=== PATIENT | male | born 1985 | race American Indian/Alaskan Native ===

== ENCOUNTER 2017-05-27 10:32 | Emergency (ER) | payer SELFPAY ==
--- NOTE | 2017-05-27 11:22 | XRay Report ---
CHEST 2 VIEWS INDICATION: Shortness of breath. COMPARISON: None similar at this institution. FINDINGS: PA and lateral chest radiographs demonstrate normal cardiomediastinal silhouette. Clear lungs. Intact bones. CONCLUSION: No acute disease in the chest. Thank you for the opportunity to participate in this patient's care.
[2017-05-27] MEDS ORDERED: ZOFRAN IV ONE (16:49)
[2017-05-27] MEDS ORDERED: NACL 0.9% 1000 ML 1,000 ML IV ONE (16:49)
[2017-05-27] MEDS ORDERED: TORADOL IV ONE (16:49)
--- NOTE | 2017-05-27 16:52 | Emergency Department Report ---
ED General Adult HPI - General Chief complaint: Upper Respiratory Infection Stated complaint: FLU SX Time Seen by Provider: 05/27/17 16:45 Source: patient Mode of arrival: Ambulatory Limitations: No Limitations - History of Present Illness Initial comments: Patient is 32 years old male, HIV patient. Patient presented to the ER complaining of cough congestion runny nose and flulike symptoms for the last 5 days patient is complaining of productive cough with greenish sputum. He also stated that his been nauseated and not been eating or drinking well. Patient denied any vomiting that he stated that his been having watery diarrhea. No chest pain or shortness of breath. - Related Data Allergies Allergy/AdvReac Type Severity Reaction Status Date / Time Penicillins Allergy Anaphylaxis Verified 05/27/17 10:56 Sulfa (Sulfonamide Allergy Anaphylaxis Verified 05/27/17 10:56 Antibiotics) ED Review of Systems ROS: Stated complaint: FLU SX Other details as noted in HPI Comment: All other systems reviewed and negative Constitutional: denies: chills, fever Respiratory: cough. denies: orthopnea, shortness of breath, SOB with exertion, SOB at rest, stridor, wheezing Cardiovascular: denies: chest pain, palpitations, dyspnea on exertion Gastrointestinal: nausea, diarrhea. denies: abdominal pain, vomiting, constipation, hematemesis, hematochezia Neurological: denies: headache, weakness, numbness, paresthesias ED Past Medical Hx - Past Medical History Hx HIV: Yes - Surgical History Past Surgical History?: No - Social History Smoking Status: Current Every Day Smoker Substance Use Type: Marijuana ED Physical Exam - General Limitations: No Limitations General appearance: alert, in no apparent distress - Head Head exam: Present: atraumatic, normocephalic, normal inspection - Eye Eye exam: Present: normal appearance - ENT ENT exam: Present: normal exam, normal orophraynx, mucous membranes dry - Neck Neck exam: Present: normal inspection, full ROM. Absent: tenderness, meningismus, lymphadenopathy - Respiratory Respiratory exam: Present: normal lung sounds bilaterally. Absent: respiratory distress, wheezes, rales, rhonchi, chest wall tenderness, accessory muscle use, decreased breath sounds, prolonged expiratory - Cardiovascular Cardiovascular Exam: Present: regular rate, normal rhythm, normal heart sounds - GI/Abdominal GI/Abdominal exam: Present: soft, normal bowel sounds. Absent: distended, tenderness, guarding, rebound, rigid, organomegaly, mass, bruit, pulsatile mass , hernia - Extremities Exam Extremities exam: Present: normal inspection, full ROM, normal capillary refill - Back Exam Back exam: Present: normal inspection, full ROM. Absent: tenderness, CVA tenderness (R), CVA tenderness (L) - Neurological Exam Neurological exam: Present: alert, oriented X3, CN II-XII intact, normal gait - Psychiatric Psychiatric exam: Present: normal affect. Absent: depressed, agitated - Skin Skin exam: Present: warm, dry, intact ED Course Vital Signs 05/27/17 05/27/17 10:50 14:56 Temperature 98.7 F 98.3 F Pulse Rate 83 84 Respiratory 18 22 Rate Blood Pressure 102/67 Blood Pressure 107/65 [Left] O2 Sat by Pulse 100 97 Oximetry ED Medical Decision Making - Lab Data Result diagrams: 05/27/17 16:54 05/27/17 16:54 - Radiology Data Radiology results: report reviewed Referring Physician: REJI MCDANIEL Patient Name: GREG LAZO Date of : 1985 Sex: Male Report Date: 2017-05-27 Report Status: Finalized Findings [facility] [address] [place] [address] XRay Report Signed Patient: GREG LAZO MR#: [id number] : 1985 Acct:[id number] Age/Sex: 32 / M ADM Date: 05/27/17 Loc: ED Attending Dr: Ordering Physician: REJI MCDANIEL MD Date of Service: 05/27/17 Procedure(s): XR chest routine 2V Accession Number(s): [id number] cc: ED MD VIOLETA Fluoro Time In Minutes: CHEST 2 VIEWS INDICATION: Shortness of breath. COMPARISON: None similar at this institution. FINDINGS: PA and lateral chest radiographs demonstrate normal cardiomediastinal silhouette. Clear lungs. Intact bones. CONCLUSION: No acute disease in the chest. Thank you for the opportunity to participate in this patient's care. Transcribed By: RS Dictated By: CHESTER WARD MD Electronically Authenticated By: CHESTER WARD MD Signed Date/Time: 05/27/171116 DD/ 15 TD/TT: 05/27/17 1117 - Medical Decision Making Patient stated that he is feeling much better. No nausea no vomiting. This is most likely acute bronchitis patient will be given ciprofloxacin, Zofran and tramadol for his dental pain. I advised patient to follow-up with his dentist in the next 2-3 days. Critical care attestation.: If time is entered above; I have spent that time in minutes in the direct care of this critically ill patient, excluding procedure time. ED Disposition Clinical Impression: Acute bronchitis, Dehydration, HIV (human immunodeficiency virus infection), Dental caries Disposition: - TO HOME OR SELFCARE Is pt being admited?: No Condition: Stable Instructions: Acute Bronchitis (ED) Referrals: ANH BARRETT MD [Primary Care Provider] - 3-5 Days Forms: Work/School Release Form(ED)
[2017-05-27 17:12] LABS: Basophils % (Auto) 0.8 % (0.0-1.8); Eosinophils % (Auto) 0.1 % (0.0-4.3); Hematocrit 40.2 % (35.5-45.6); Hemoglobin 14.2 gm/dl (11.8-15.2); Lymphocytes # (Auto) 1.9 K/mm3 (1.2-5.4); Lymphocytes % (Auto) 35.6 % (13.4-35.0); Mean Corpuscular HGB Conc 35 % (32-34); Mean Corpuscular Hemoglobin 31 pg (28-32); Mean Corpuscular Volume 87 fl (84-94); Monocytes # (Auto) 0.7 K/mm3 (0.0-0.8); Monocytes % (Auto) 12.3 % (0.0-7.3); Platelet Count 183 K/mm3 (140-440); Red Cell Distribution Width 12.9 % (13.2-15.2)
[2017-05-27 17:24] LABS: Alanine Aminotransferase 28 units/L (7-56); BUN/Creatinine Ratio 10; Blood Urea Nitrogen 7 mg/dL (9-20); Calcium 9.1 mg/dL (8.4-10.2); Hemolysis Index 6
[2017-05-27 18:55] VITALS: BP 109/64
== END 2017-05-27 18:45 | disposition home or self-care (01) ==
LOC: ED 10:32
DX: J20.9 Acute bronchitis, unspecified (principal); K02.9 Dental caries, unspecified; E86.0 Dehydration; F17.200 Nicotine dependence, unspecified, uncomplicated; F12.10 Cannabis abuse, uncomplicated; Z88.0 Allergy status to penicillin; Z88.2 Allergy status to sulfonamides
CPT/HCPCS: 36415; 71046; 80053; 85025; 96361; 96374; 96375; 99284; J1885; J2405; J7030

== ENCOUNTER 2017-07-29 10:31 | Emergency (ER) | payer OTHER ==
[2017-07-29 11:18] VITALS: BP 104/64
[2017-07-29] MEDS ORDERED: ULTRAM PO ONE (13:12)
--- NOTE | 2017-07-29 13:21 | Emergency Department Report ---
ED ENT HPI - General Chief complaint: Dental/Oral Stated complaint: TOOTHACHE Time Seen by Provider: 07/29/17 12:20 Source: patient Mode of arrival: Ambulatory Limitations: No Limitations - History of Present Illness Initial comments: This is a 32-year-old male presents with tooth pain on the right upper side for 2-3 weeks. Patient reports having a tooth pulled about 3 weeks ago and continues to have throbbing pain near tooth extraction. Patient reports having one tooth removed and dental work on the tooth next to it. Patient states they are trying to keep tooth but he is still having pain and discomfort in that area. Denies difficulty swallowing, eating, abscess, fever, and chest pain. MD complaint: tooth pain -: week(s) (2-3 weeks) Location: tooth # (#4) Severity: moderate Severity scale (0 -10): 10 Quality: aching, other (throbbing) Consistency: constant Improves with: none Worsens with: eating, movement Context- Dental: history of dental caries, poor dental care Associated Symptoms: gum swelling, toothache. denies: fever, cough, pain with swallowing, sore throat, tinnitus, hearing loss, discharge from ear, rhinorrhea - Related Data Previous Rx's Medication Instructions Recorded Last Taken Type Ciprofloxacin HCl [Ciprofloxacin 500 mg PO Q12H #14 tab 05/27/17 Unknown Rx TAB] Ondansetron [Zofran Odt] 4 mg PO Q8HR PRN #14 tab.rapdis 05/27/17 Unknown Rx traMADol [Ultram 50 MG tab] 50 mg PO Q4HR PRN #14 tablet 05/27/17 Unknown Rx Clindamycin [Clindamycin CAP] 300 mg PO Q8H #21 cap 07/29/17 Unknown Rx Naproxen [Naprosyn TAB] 500 mg PO BID PRN #14 tablet 07/29/17 Unknown Rx traMADol [Ultram 50 MG tab] 50 mg PO Q6HR PRN #15 tablet 07/29/17 Unknown Rx Allergies Allergy/AdvReac Type Severity Reaction Status Date / Time Penicillins Allergy Anaphylaxis Verified 05/27/17 10:56 Sulfa (Sulfonamide Allergy Anaphylaxis Verified 05/27/17 10:56 Antibiotics) ED Dental HPI - General Chief complaint: Dental/Oral Stated complaint: TOOTHACHE Time Seen by Provider: 07/29/17 12:20 Source: patient Mode of arrival: Ambulatory Limitations: No Limitations - Related Data Previous Rx's Medication Instructions Recorded Last Taken Type Ciprofloxacin HCl [Ciprofloxacin 500 mg PO Q12H #14 tab 05/27/17 Unknown Rx TAB] Ondansetron [Zofran Odt] 4 mg PO Q8HR PRN #14 tab.rapdis 05/27/17 Unknown Rx traMADol [Ultram 50 MG tab] 50 mg PO Q4HR PRN #14 tablet 05/27/17 Unknown Rx Clindamycin [Clindamycin CAP] 300 mg PO Q8H #21 cap 07/29/17 Unknown Rx Naproxen [Naprosyn TAB] 500 mg PO BID PRN #14 tablet 07/29/17 Unknown Rx traMADol [Ultram 50 MG tab] 50 mg PO Q6HR PRN #15 tablet 07/29/17 Unknown Rx Allergies Allergy/AdvReac Type Severity Reaction Status Date / Time Penicillins Allergy Anaphylaxis Verified 05/27/17 10:56 Sulfa (Sulfonamide Allergy Anaphylaxis Verified 05/27/17 10:56 Antibiotics) ED Review of Systems ROS: Stated complaint: TOOTHACHE Other details as noted in HPI Constitutional: denies: chills, fever ENT: dental pain (right upper side #4). denies: ear pain, throat pain ED Past Medical Hx - Past Medical History Previous Medical History?: Yes Hx HIV: Yes - Surgical History Past Surgical History?: No - Social History Smoking Status: Current Every Day Smoker Substance Use Type: Alcohol, Cocaine, Marijuana, Other - Medications Home Medications: Home Medications Medication Instructions Recorded Confirmed Last Taken Type Ciprofloxacin HCl [Ciprofloxacin 500 mg PO Q12H #14 tab 05/27/17 Unknown Rx TAB] Ondansetron [Zofran Odt] 4 mg PO Q8HR PRN #14 tab.rapdis 05/27/17 Unknown Rx traMADol [Ultram 50 MG tab] 50 mg PO Q4HR PRN #14 tablet 05/27/17 Unknown Rx Clindamycin [Clindamycin CAP] 300 mg PO Q8H #21 cap 07/29/17 Unknown Rx Naproxen [Naprosyn TAB] 500 mg PO BID PRN #14 tablet 07/29/17 Unknown Rx traMADol [Ultram 50 MG tab] 50 mg PO Q6HR PRN #15 tablet 07/29/17 Unknown Rx ED Physical Exam - General Limitations: No Limitations General appearance: alert, in no apparent distress - ENT ENT exam: Present: mucous membranes moist, other (dental caries, #4, mucosa swelling, tenderness) - Neck Neck exam: Present: normal inspection, full ROM. Absent: lymphadenopathy - Respiratory Respiratory exam: Present: normal lung sounds bilaterally. Absent: respiratory distress - Cardiovascular Cardiovascular Exam: Present: regular rate, normal rhythm, normal heart sounds. Absent: systolic murmur, diastolic murmur, rubs, gallop - GI/Abdominal GI/Abdominal exam: Present: soft, normal bowel sounds. Absent: organomegaly, mass - Neurological Exam Neurological exam: Present: alert, oriented X3 - Psychiatric Psychiatric exam: Present: normal affect, normal mood ED Course Vital Signs 07/29/17 11:14 Temperature 98.6 F Pulse Rate 68 Respiratory 18 Rate Blood Pressure 104/64 O2 Sat by Pulse 97 Oximetry ED Medical Decision Making - Medical Decision Making This is a 32-year-old male that presents with toothache on the right upper side for 3 weeks. Patient is stable and was examined by me. Given tramadol once in ER. Susceptible of dental caries. Start clindamycin, naproxen, and tramadol. Discussed plan with patient. He agreed with ER plan. Discharged home in stable condition. Follow up with dentist in 2-3 days. Critical care attestation.: If time is entered above; I have spent that time in minutes in the direct care of this critically ill patient, excluding procedure time. ED Disposition Clinical Impression: Dental caries, Toothache Disposition: DC- TO HOME OR SELFCARE Is pt being admited?: No Does the pt Need Aspirin: No Condition: Stable Instructions: Dental Caries (ED), Toothache (ED) Additional Instructions: Complete all days of clindamycin as prescribed for 14 days. Follow up with Dentist at [facility] in 24-72 hours. Prescriptions: Clindamycin [Clindamycin CAP] 300 mg PO Q8H #21 cap Naproxen [Naprosyn TAB] 500 mg PO BID PRN #14 tablet PRN Reason: Pain traMADol [Ultram 50 MG tab] 50 mg PO Q6HR PRN #15 tablet PRN Reason: Pain Referrals: [facility] [Outside] - 3-5 Days [facility] [Outside] - 3-5 Days [facility] [Outside] - 3-5 Days [facility] [Outside] - 3-5 Days Forms: Work/School Release Form(ED) Time of Disposition: 13:45 Print Language: EQUATORIAL GUINEAN
== END 2017-07-29 13:55 | disposition home or self-care (01) ==
LOC: ED 10:31
DX: K02.9 Dental caries, unspecified (principal); K08.89 Other specified disorders of teeth and supporting structures; F17.200 Nicotine dependence, unspecified, uncomplicated; F12.90 Cannabis use, unspecified, uncomplicated; Z88.0 Allergy status to penicillin; Z88.2 Allergy status to sulfonamides
CPT/HCPCS: 99282

== ENCOUNTER 2018-02-07 04:07 | Emergency (ER) | payer SELFPAY ==
[2018-02-07] MEDS ORDERED: TYLENOL PO ONE (04:41)
[2018-02-07] MEDS ORDERED: TYLENOL ONE (04:45)
[2018-02-07 05:25] LABS: Basophils % (Auto) 0.5 % (0.0-1.8); Hematocrit 41.4 % (35.5-45.6); Hemoglobin 14.2 gm/dl (11.8-15.2); Lymphocytes # (Auto) 1.2 K/mm3 (1.2-5.4); Mean Corpuscular HGB Conc 34 % (32-34); Mean Corpuscular Hemoglobin 33 pg (28-32); Mean Corpuscular Volume 97 fl (84-94); Monocytes # (Auto) 0.7 K/mm3 (0.0-0.8); Monocytes % (Auto) 8.7 % (0.0-7.3); Platelet Count 221 K/mm3 (140-440); Red Blood Count 4.27 M/mm3 (3.65-5.03); Red Cell Distribution Width 12.5 % (13.2-15.2)
[2018-02-07 05:38] LABS: Alanine Aminotransferase 19 units/L (7-56); Albumin 4.6 g/dL (3.9-5); BUN/Creatinine Ratio 10; Blood Urea Nitrogen 9 mg/dL (9-20); Calcium 9.2 mg/dL (8.4-10.2); Hemolysis Index 3
[2018-02-07 06:04] VITALS: BP 104/56
[2018-02-07 06:42] LABS: Bilirubin,Urine NEG (Negative); Blood,Urine SM (Negative); Color,Urine Yellow (Yellow); Mucus,Urine 3+ /HPF; Urobilinogen,Urine < 2.0 mg/dL (<2.0)
[2018-02-07] MEDS ORDERED: ZOFRAN ORAL LIQ PO ONE (06:42)
--- NOTE | 2018-02-07 06:43 | Emergency Department Report ---
ED General Adult HPI - General Chief complaint: Fever Stated complaint: FEVER,N/D Time Seen by Provider: 02/07/18 06:34 Source: patient, RN notes reviewed Mode of arrival: Ambulatory Limitations: No Limitations - History of Present Illness Initial comments: This is a 32-year-old gentleman who is not known to this provider previously. Patient was recently diagnosed with HIV, and he is currently on highly active antiretroviral therapy. He does not know what his CD4 count is. He does not know what his viral load is. Patient reports being treated with a "shot" and antibiotics a few days ago, for recently diagnosed gonorrhea/possible chlamydia. He does not know if he was tested for syphilis. He felt fine initially after his therapy. He presents to the ER with approximately one half day of fever, body aches, abdominal cramping, nausea 5, diarrhea 10. This is associated with abdominal cramping. The fever, body aches are constant since last night, they improved with appropriate antipruritic therapy, abdominal cramping is intermittent, now resolved, diarrhea is 10 times within the past 12-24 hours, nonbloody, nonbilious, and emesis has since resolved. -: Gradual Location: abdomen Severity scale (0 -10): 8 Quality: other Consistency: other Improves with: other Worsens with: other Associated Symptoms: fever/chills, loss of appetite, malaise, nausea/vomiting. denies: confusion, chest pain, cough, diaphoresis, headaches, rash, seizure, shortness of breath, syncope, weakness - Related Data Previous Rx's Medication Instructions Recorded Last Taken Type Ciprofloxacin HCl [Ciprofloxacin 500 mg PO Q12H #14 tab 05/27/17 Unknown Rx TAB] Ondansetron [Zofran Odt] 4 mg PO Q8HR PRN #14 tab.rapdis 05/27/17 Unknown Rx traMADol [Ultram 50 MG tab] 50 mg PO Q4HR PRN #14 tablet 05/27/17 Unknown Rx Clindamycin [Clindamycin CAP] 300 mg PO Q8H #21 cap 07/29/17 Unknown Rx Naproxen [Naprosyn TAB] 500 mg PO BID PRN #14 tablet 07/29/17 Unknown Rx traMADol [Ultram 50 MG tab] 50 mg PO Q6HR PRN #15 tablet 07/29/17 Unknown Rx Acetaminophen [Tylenol Arthritis] 650 mg PO Q6HR PRN #30 tablet.er 02/07/18 Unknown Rx Ibuprofen [Motrin] 600 mg PO Q8H PRN #30 tablet 02/07/18 Unknown Rx Ondansetron [Zofran Odt] 4 mg PO Q8HR PRN #20 tab.rapdis 02/07/18 Unknown Rx Promethazine [Phenergan SUPPOS] 50 mg [place] Q6H PRN #15 supp.rect 02/07/18 Unknown Rx Allergies Allergy/AdvReac Type Severity Reaction Status Date / Time Penicillins Allergy Anaphylaxis Verified 05/27/17 10:56 Sulfa (Sulfonamide Allergy Anaphylaxis Verified 05/27/17 10:56 Antibiotics) ED Review of Systems ROS: Stated complaint: FEVER,N/D Other details as noted in HPI Constitutional: fever, malaise, weakness Eyes: denies: eye discharge ENT: denies: epistaxis Respiratory: denies: wheezing Cardiovascular: denies: chest pain Gastrointestinal: abdominal pain, nausea, vomiting, diarrhea Genitourinary: denies: dysuria Musculoskeletal: arthralgia, myalgia Neurological: denies: as per HPI, weakness Psychiatric: anxiety ED Past Medical Hx - Past Medical History Hx HIV: Yes - Surgical History Past Surgical History?: No - Social History Smoking Status: Current Every Day Smoker Substance Use Type: Marijuana - Medications Home Medications: Home Medications Medication Instructions Recorded Confirmed Last Taken Type Ciprofloxacin HCl [Ciprofloxacin 500 mg PO Q12H #14 tab 05/27/17 Unknown Rx TAB] Ondansetron [Zofran Odt] 4 mg PO Q8HR PRN #14 tab.rapdis 05/27/17 Unknown Rx traMADol [Ultram 50 MG tab] 50 mg PO Q4HR PRN #14 tablet 05/27/17 Unknown Rx Clindamycin [Clindamycin CAP] 300 mg PO Q8H #21 cap 07/29/17 Unknown Rx Naproxen [Naprosyn TAB] 500 mg PO BID PRN #14 tablet 07/29/17 Unknown Rx traMADol [Ultram 50 MG tab] 50 mg PO Q6HR PRN #15 tablet 07/29/17 Unknown Rx Acetaminophen [Tylenol Arthritis] 650 mg PO Q6HR PRN #30 tablet.er 02/07/18 Unknown Rx Ibuprofen [Motrin] 600 mg PO Q8H PRN #30 tablet 02/07/18 Unknown Rx Ondansetron [Zofran Odt] 4 mg PO Q8HR PRN #20 tab.rapdis 02/07/18 Unknown Rx Promethazine [Phenergan SUPPOS] 50 mg [place] Q6H PRN #15 supp.rect 02/07/18 Unknown Rx ED Physical Exam - General Limitations: No Limitations General appearance: alert, in no apparent distress - Head Head exam: Present: atraumatic, normocephalic - Eye Eye exam: Present: normal appearance, EOMI. Absent: nystagmus - ENT ENT exam: Present: normal exam, normal orophraynx, mucous membranes moist, normal external ear exam - Neck Neck exam: Present: normal inspection, full ROM. Absent: tenderness, meningismus - Respiratory Respiratory exam: Present: normal lung sounds bilaterally. Absent: respiratory distress - Cardiovascular Cardiovascular Exam: Present: regular rate, normal rhythm, normal heart sounds. Absent: bradycardia, tachycardia, irregular rhythm, systolic murmur, diastolic murmur, rubs, gallop - GI/Abdominal GI/Abdominal exam: Present: soft. Absent: distended, tenderness, guarding, rebound, rigid, pulsatile mass - Rectal Rectal exam: Present: deferred - Extremities Exam Extremities exam: Present: normal inspection, full ROM, other (2+ pulses noted in the bilateral upper, lower extremities. Compartments soft. No long bony tenderness. The pelvis is stable.). Absent: pedal edema, joint swelling, calf tenderness - Back Exam Back exam: Present: normal inspection, full ROM. Absent: tenderness, CVA tenderness (R), paraspinal tenderness, vertebral tenderness - Neurological Exam Neurological exam: Present: alert, oriented X3, CN II-XII intact, normal gait, other (Extraocular movements intact. Tongue midline. No facial droop. Facial sensation intact to light touch in the V1, V2, V3 distribution bilaterally. 5 and 5 strength in 4 extremities.. Sensation is intact to light touch in 4 extremities.). Absent: motor sensory deficit - Psychiatric Psychiatric exam: Present: normal affect, normal mood - Skin Skin exam: Present: warm, dry, intact, normal color. Absent: rash ED Course Vital Signs 02/07/18 02/07/18 02/07/18 04:22 04:32 06:03 Temperature 102.7 F H 102.7 F H 99.2 F Pulse Rate 87 68 Respiratory 18 16 Rate Blood Pressure 114/63 Blood Pressure 104/56 [Right] O2 Sat by Pulse 96 96 Oximetry ED Medical Decision Making - Lab Data Result diagrams: 02/07/18 04:51 02/07/18 04:51 Vital Signs 02/07/18 02/07/18 02/07/18 04:22 04:32 06:03 Temperature 102.7 F H 102.7 F H 99.2 F Pulse Rate 87 68 Respiratory 18 16 Rate Blood Pressure 114/63 Blood Pressure 104/56 [Right] O2 Sat by Pulse 96 96 Oximetry Lab Results 02/07/18 02/07/18 02/07/18 Range/Units 04:51 04:51 06:11 WBC 8.2 (4.5-11.0) K/mm3 RBC 4.27 (3.65-5.03) M/mm3 Hgb 14.2 (11.8-15.2) gm/dl Hct 41.4 (35.5-45.6) % MCV 97 H (84-94) fl MCH 33 H (28-32) pg MCHC 34 (32-34) % RDW 12.5 L (13.2-15.2) % Plt Count 221 (140-440) K/mm3 Lymph % (Auto) 15.0 (13.4-35.0) % [place] % (Auto) 8.7 H (0.0-7.3) % Eos % (Auto) 0.0 (0.0-4.3) % Baso % (Auto) 0.5 (0.0-1.8) % Lymph # 1.2 (1.2-5.4) K/mm3 [place] # 0.7 (0.0-0.8) K/mm3 Eos # 0.0 (0.0-0.4) K/mm3 Baso # 0.0 (0.0-0.1) K/mm3 Seg Neutrophils % 75.8 H (40.0-70.0) % Seg Neutrophils # 6.2 (1.8-7.7) K/mm3 Sodium 133 L (137-145) mmol/L Potassium 4.2 (3.6-5.0) mmol/L Chloride 95.3 L (98-107) mmol/L Carbon Dioxide 24 (22-30) mmol/L Anion Gap 18 mmol/L BUN 9 (9-20) mg/dL Creatinine 0.9 (0.8-1.5) mg/dL Estimated GFR > 60 ml/min BUN/Creatinine Ratio 10 % Glucose 107 H (75-100) mg/dL Calcium 9.2 (8.4-10.2) mg/dL Total Bilirubin 0.50 (0.1-1.2) mg/dL AST 30 (5-40) units/L ALT 19 (7-56) units/L Alkaline Phosphatase 77 (35-129) units/L Total Protein 8.4 H (6.3-8.2) g/dL Albumin 4.6 (3.9-5) g/dL Albumin/Globulin Ratio 1.2 % Urine Color Yellow (Yellow) Urine Turbidity Clear (Clear) Urine pH 6.0 (5.0-7.0) Ur Specific [place] 1.025 (1.003-1.030) Urine Protein 30 mg/dl (Negative) mg/dL Urine Glucose (UA) Neg (Negative) mg/dL Urine Ketones Neg (Negative) mg/dL Urine Blood Sm (Negative) Urine Nitrite Neg (Negative) Urine Bilirubin Neg (Negative) Urine Urobilinogen < 2.0 (<2.0) mg/dL Ur Leukocyte Esterase Neg (Negative) Urine WBC (Auto) 5.0 (0.0-6.0) /HPF Urine RBC (Auto) 10.0 (0.0-6.0) /HPF U Epithel Cells (Auto) < 1.0 (0-13.0) /HPF Urine Mucus 3+ /HPF - Medical Decision Making Differential diagnosis, including not limited to: Enteritis, viral syndrome, gastroenteritis Assessment and plan: 32-year-old gentleman with fever, no tachycardia, reported history of nausea, vomiting and diarrhea. He is initially febrile, but not tac hycardic, fever has resolved with appropriate antipyretic medication, upon my initial examination and is sleeping comfortably in stretcher and in no acute distress. Abdomen soft and benign, with no rebound, guarding or peritoneal signs. Muscular compartments soft. Patient tolerating oral feeds at this time. Most likely viral syndrome. Patient will be discharged with pain medication, nausea medication, instructions to follow up with outpatient primary care. Critical care attestation.: If time is entered above; I have spent that time in minutes in the direct care o f this critically ill patient, excluding procedure time. ED Disposition Clinical Impression: Nausea vomiting and diarrhea Disposition: DC-01 TO HOME OR SELFCARE Is pt being admited?: No Does the pt Need Aspirin: No Condition: Good Instructions: Acute Nausea and Vomiting (ED) Additional Instructions: Advance diet as tolerated. Take the medications as needed/directed. Symptoms likely coming from viral infection within the intestines, and may last anywhere from the next 3-7 days. Drink plenty of liquids, advance diet as tolerated. If symptoms persist for more than the next 7 days, return to the emergency room right away. Patient should follow-up with his primary care doctor within the next 5-7 days for repeat checkup/evaluation. Return to the ER right away with projectile vomiting, change in mental status, confusion, inability to tolerate liquid feeds, new, worsening or different symptoms. Referrals: [facility] [Provider Group] - 3-5 Days
== END 2018-02-07 08:04 | disposition home or self-care (01) ==
LOC: ED 04:07
DX: R11.2 Nausea with vomiting, unspecified (principal); R50.9 Fever, unspecified; R19.7 Diarrhea, unspecified; M79.18 Myalgia, other site; F17.200 Nicotine dependence, unspecified, uncomplicated; F12.10 Cannabis abuse, uncomplicated; Z88.0 Allergy status to penicillin; Z88.2 Allergy status to sulfonamides
CPT/HCPCS: 36415; 80053; 81001; 85025; 99283; Q0162